=== PATIENT | male | born 1940 | race Caucasian/White ===

== ENCOUNTER → 2017-08-25 12:04 | Outpatient (CLI) | payer MEDICARE, OTHER ==
[2017-08-26 11:19] LABS: IMMUNOGLOBULIN A 220 mg/dL (61-437); IMMUNOGLOBULIN G 694 mg/dL (700-1600)
== END | disposition home or self-care (01) ==
LOC: D.RT 12:04
PROVIDERS: Internal Medicine Pulmonary Disease
DX: J32.9 Chronic sinusitis, unspecified (principal)